=== PATIENT | female | born 1985 | race Two or more races ===

== ENCOUNTER → 2019-12-06 10:16 | Outpatient (CLI) | payer MEDICAID | END | disposition home or self-care (01) | LOC: D.US 10:00 | PROVIDERS: ATTEND Family Medicine | DX: Z98.51 Tubal ligation status (principal) ==

== ENCOUNTER → 2021-02-01 17:06 | Outpatient (CLI) | payer MEDICAID | END | disposition home or self-care (01) | LOC: D.US 17:00 | PROVIDERS: ATTEND Family Medicine | DX: M79.651 Pain in right thigh (principal) ==